=== PATIENT | male | born 1975 ===

== ENCOUNTER 2016-07-24 20:15 | Emergency (ER) | payer MEDICAID ==
--- NOTE | 2016-07-24 21:02 | RAD ---
EXAMINATION : SOFT TISSUE NECK HISTORY: Foreign body sensation in throat following eating. COMPARISONS: None FINDINGS: No radiopaque foreign body is identified. No soft tissue gas or airway obstruction is appreciated. The osseous structures are unremarkable. IMPRESSION: No radiopaque foreign body is currently identified. No evidence of airway obstruction radiographically.
== END 2016-07-24 21:09 | disposition home or self-care (01) ==
LOC: ED 20:15
DX: R09.89 Other specified symptoms and signs involving the circulatory and respiratory systems (principal); F17.210 Nicotine dependence, cigarettes, uncomplicated